=== PATIENT | male | born 1965 | race Caucasian/White ===

== ENCOUNTER 2018-01-31 11:04 | Emergency (ER) | payer MEDICAID ==
[~2018-01-31] VITALS: Ht 188 cm; Wt 71.5 kg
[2018-01-31 11:12] VITALS: BP 145/92
[2018-01-31] MEDS ORDERED: ALBUTEROL/IPRATROPIUM 2.5MG/0.5MG, 3 ML ONE (12:29)
[2018-01-31] MEDS ORDERED: ALBUTEROL/IPRATROPIUM 2.5MG/0.5MG, 3 ML NPPB ONE (12:30)
== END 2018-01-31 13:23 | disposition home or self-care (01) ==
LOC: ED 13:08
DX: J44.1 Chronic obstructive pulmonary disease with (acute) exacerbation (principal); L30.9 Dermatitis, unspecified; Z87.891 Personal history of nicotine dependence
CPT/HCPCS: 94640; 99283; J7512; J7620